=== PATIENT | female | born 1990 | race Hispanic/Latino ===

== ENCOUNTER 2020-07-24 03:45 | Emergency (ER) | payer SELFPAY ==
[~2020-07-24 03:45] MED LIST: ACETAMINOPHEN 325 MG TAB ONE
== END 2020-07-24 03:52 | disposition home or self-care (01) ==
LOC: EDH 03:45
DX: R20.8 Other disturbances of skin sensation (principal); Z59.0 Homelessness

== ENCOUNTER 2022-04-09 07:51 | Inpatient (IN) | payer OTHER ==
[~2022-04-09] VITALS: Ht 154.9 cm; Wt 111.7 kg
[2022-04-09] MEDS ORDERED: MORPHINE 4 MG SYG IVP ONE ×4 (08:00→11:30)
[2022-04-09] MEDS ORDERED: IOHEXOL 350 MG/ML 100ML INFUS..BTL IV ONE ×2 (08:15→08:34)
[2022-04-09] MEDS ORDERED: KETOROLAC 15MG/ML VIAL (15MG/ML) ONE (08:18)
[2022-04-09] MEDS ORDERED: DiphenhydrAMINE HCL 50 MG/ML VIAL ONE (08:18)
[2022-04-09] MEDS ORDERED: DiphenhydrAMINE HCL 50 MG/ML VIAL IV ONE (08:30)
[2022-04-09] MEDS ORDERED: KETOROLAC 15MG/ML VIAL (15MG/ML) IV ONE (08:30)
[2022-04-09 08:37] LABS: HEMATOCRIT 40.7 % (36-48); MEAN CORPUSCULAR HEMOGLOBIN 29.8 pg (27.0-33.0); MEAN CORPUSCULAR HGB CONC 33.4 g/dL (32.0-36.0); MEAN CORPUSCULAR VOLUME 89.1 fL (79-99); PLATELET COUNT (AUTO) 214 K/uL (130-400); RED BLOOD CELL COUNT(AUTO) 4.57 MIL/uL (4.00-5.50); RED CELL DISTRIBUTION WIDTH 13.7 % (11.0-15.5); WHITE BLOOD COUNT (AUTO) 10.7 K/uL (4.8-10.8)
[2022-04-09] MEDS: 0.9%NACL 1000ML 1,000 ML IV SCH ×2 (08:53→16:38)
[2022-04-09 08:58] LABS: ALANINE AMINOTRANSFERASE 28 U/L (12-78); ALBUMIN 3.8 g/dL (3.5-5.0); ASPARTATE AMINOTRANSFERASE 17 U/L (10-37); CARBON DIOXIDE 21 mmol/L (21-32); CHLORIDE 103 mmol/L (101-111); CREATININE 1.2 mg/dL (0.5-1.5); GLOMERULAR FILTR. RATE CALC 56 mL/min (>60); GLUCOSE,RANDOM 118 mg/dL (70-105); POTASSIUM 3.4 mmol/L (3.5-5.1); SODIUM SERUM 139 mmol/L (136-145); TOTAL PROTEIN, SERUM 8.3 g/dL (6.0-8.3); UREA NITROGEN, BLOOD 12 mg/dL (7-18)
[2022-04-09 09:09] LABS: INR 0.97 (0.85-1.15); PROTHROMBIN TIME 10.6 SEC (9.6-11.6)
[2022-04-09 09:11] LABS: PARTIAL THROMBOPLASTIN TIME 24.3 SEC (26.3-35.5)
[2022-04-09 09:28] LABS: BASOPHILS % (MANUAL) 1 % (0-2); EOSINOPHILS % (MANUAL) 1 % (1-6); LYMPHOCYTES % (MANUAL) 22 % (22-44); MAN.DIFF COMMENT-IMPRESSION MANUAL DIFFERENTIAL; MONOCYTES % (MANUAL) 3 % (2-9); PLATELET MORPHOLOGY COMMENT ADEQUATE; SEGMENTED NEUTROPHILS % 73 % (40-70)
[2022-04-09] MEDS ORDERED: HEPARIN 5,000 UNIT VIAL ONE (11:30)
[2022-04-09] MEDS ORDERED: HEPARIN 25,000 UNITS/250ML D5W 250 ML IV ONE (11:31)
[2022-04-09] MEDS: HEPARIN 25,000 UNITS/250ML D5W 250 ML IV SCH (11:47)
[2022-04-09] MEDS ORDERED: ONDANSETRON 4MG INJ IV PRN (12:30)
[2022-04-09] MEDS ORDERED: ACETAMINOPHEN 325 MG TAB PO PRN ×3 (12:30)
[2022-04-09 15:00] VITALS: BP 113/89
[2022-04-09 18:12] LABS: INR 1.02 (0.85-1.15); PROTHROMBIN TIME 11.1 SEC (9.6-11.6)
[2022-04-09 18:13] LABS: PARTIAL THROMBOPLASTIN TIME 81.4 SEC (26.3-35.5)
[2022-04-09 19:05] VITALS: BP 116/74
[2022-04-09] MEDS: FAMOTIDINE 20MG TAB PO SCH (22:56)
[2022-04-09 23:24] VITALS: BP 98/65
[2022-04-10] MEDS: HEPARIN 25,000 UNITS/250ML D5W 250 ML IV SCH (01:36)
[2022-04-10] MEDS: 0.9%NACL 1000ML 1,000 ML IV SCH ×4 (02:55→19:39)
[2022-04-10] MEDS: MORPHINE 4 MG SYG IVP PRN ×2 (03:04→20:09)
[2022-04-10 04:10] VITALS: BP 100/66
[2022-04-10 06:31] LABS: BASOPHILS % (AUTO) 0.3 % (0.0-5.0); EOSINOPHILS % (AUTO) 2.3 % (0.0-8.0); HEMATOCRIT 38.2 % (36-48); LYMPHOCYTES % (AUTO) 33.3 % (21.0-51.0); MEAN CORPUSCULAR HEMOGLOBIN 29.9 pg (27.0-33.0); MEAN CORPUSCULAR HGB CONC 33.2 g/dL (32.0-36.0); MEAN CORPUSCULAR VOLUME 89.9 fL (79-99); MONOCYTES % (AUTO) 4.9 % (3.0-13.0); NEUTROPHILS % (AUTO) 58.9 % (40.0-77.0); PLATELET COUNT (AUTO) 179 K/uL (130-400); RED BLOOD CELL COUNT(AUTO) 4.25 MIL/uL (4.00-5.50); RED CELL DISTRIBUTION WIDTH 14.2 % (11.0-15.5); WHITE BLOOD COUNT (AUTO) 8.6 K/uL (4.8-10.8)
[2022-04-10 06:45] LABS: CREATININE 0.7 mg/dL (0.5-1.5); POTASSIUM 3.2 mmol/L (3.5-5.1)
[2022-04-10 08:00] VITALS: BP 107/77
[2022-04-10] MEDS: FAMOTIDINE 20MG TAB PO SCH ×2 (10:54→20:09)
[2022-04-10 11:44] VITALS: BP 94/65
[2022-04-10 13:04] LABS: PROTHROMBIN TIME 10.9 SEC (9.6-11.6)
[2022-04-10 16:00] VITALS: BP 105/58
[2022-04-10 17:52] LABS: AMPHET/METH SCREEN,URINE NEGATIVE (NEGATIVE); BARBITURATE SCREEN, URINE NEGATIVE (NEGATIVE); BENZODIAZEPINES SCREEN,URINE NEGATIVE (NEGATIVE); CANNABINOID SCREEN,URINE NEGATIVE (NEGATIVE); COCAINE SCREEN,URINE POSITIVE (NEGATIVE); OPIATE SCREEN,URINE POSITIVE (NEGATIVE); PHENCYCLIDINE SCREEN,URINE NEGATIVE (NEGATIVE)
[2022-04-10 19:51] VITALS: BP 104/66
[2022-04-10 20:34] LABS: INR 0.98 (0.85-1.15); PROTHROMBIN TIME 10.7 SEC (9.6-11.6)
[2022-04-10 20:36] LABS: PARTIAL THROMBOPLASTIN TIME 49.3 SEC (26.3-35.5)
[2022-04-10 23:34] VITALS: BP 112/67
[2022-04-11 03:49] VITALS: BP 102/65
[2022-04-11 05:38] LABS: CREATININE 0.7 mg/dL (0.5-1.5); POTASSIUM 3.2 mmol/L (3.5-5.1)
[2022-04-11] MEDS: MORPHINE 4 MG SYG IVP PRN (06:19)
[2022-04-11 06:37] LABS: INR 0.97 (0.85-1.15); PROTHROMBIN TIME 10.6 SEC (9.6-11.6)
[2022-04-11 06:38] LABS: PARTIAL THROMBOPLASTIN TIME 51.3 SEC (26.3-35.5)
[2022-04-11 07:58] VITALS: BP 94/54
[2022-04-11] MEDS ORDERED: KCL 20 MEQ ERTAB PO PRN (09:30)
[2022-04-11] MEDS ORDERED: LIDOCAINE HCL-MPF 1% 2ML VIAL IV PRN (09:30)
[2022-04-11] MEDS ORDERED: POTASSIUM CHLORIDE 10% ELIXIR 20 MEQ/15 ML UDCUP PO PRN (09:30)
[2022-04-11] MEDS ORDERED: POTASSIUM CHLORIDE 20MEQ/100ML 100 ML IV PRN (09:30)
[2022-04-11] MEDS ORDERED: POTASSIUM CHLORIDE 10% ELIXIR 20 MEQ/15 ML UDCUP PO ONE (09:30)
[2022-04-11] MEDS: FAMOTIDINE 20MG TAB PO SCH ×2 (09:56→21:02)
[2022-04-11] MEDS: 0.9%NACL 1000ML 1,000 ML IV SCH ×4 (09:58→21:03)
[2022-04-11 12:00] VITALS: BP 80/42
[2022-04-11] MEDS ORDERED: APIXABAN 5 MG TABLET PO SCH (12:00)
[2022-04-11 12:04] LABS: MEAN CORPUSCULAR HEMOGLOBIN 30.1 pg (27.0-33.0); MEAN CORPUSCULAR HGB CONC 32.5 g/dL (32.0-36.0); MEAN CORPUSCULAR VOLUME 92.5 fL (79-99); RED BLOOD CELL COUNT(AUTO) 3.46 MIL/uL (4.00-5.50); RED CELL DISTRIBUTION WIDTH 14.3 % (11.0-15.5); WHITE BLOOD COUNT (AUTO) 5.8 K/uL (4.8-10.8)
[2022-04-11] MEDS ORDERED: APIX5TAB PO (12:06)
[2022-04-11] MEDS ORDERED: PANT40TA54 PO (12:06)
[2022-04-11 16:00] VITALS: BP 94/56
[2022-04-11 21:33] VITALS: BP 108/59
[2022-04-11 23:54] VITALS: BP 96/45
[2022-04-12] MEDS: 0.9%NACL 1000ML 1,000 ML IV SCH ×3 (03:08→17:15)
[2022-04-12 06:13] LABS: CREATININE 0.7 mg/dL (0.5-1.5); POTASSIUM 3.6 mmol/L (3.5-5.1)
[2022-04-12 06:15] LABS: INR 0.94 (0.85-1.15); PROTHROMBIN TIME 10.3 SEC (9.6-11.6)
[2022-04-12 06:16] LABS: PARTIAL THROMBOPLASTIN TIME 24.7 SEC (26.3-35.5)
[2022-04-12] MEDS: MORPHINE 4 MG SYG IVP PRN (06:57)
[2022-04-12 08:00] VITALS: BP 108/68
[2022-04-12] MEDS: FAMOTIDINE 20MG TAB PO SCH ×2 (09:57→20:32)
[2022-04-12] MEDS ORDERED: APIX5TAB PO (10:44)
[2022-04-12 12:00] VITALS: BP 108/60
[2022-04-12] MEDS: APIXABAN 5 MG TABLET PO SCH ×2 (15:29→20:33)
[2022-04-12 16:00] VITALS: BP 110/67
[2022-04-12] MEDS: HYDROCODONE/ACETAMINOPHEN 5/325 MG TAB PO PRN (17:12)
[2022-04-12] MEDS: DULOXETINE HCL 30 MG CAP PO SCH (20:32)
[2022-04-12 20:42] VITALS: BP 116/64
[2022-04-13] MEDS: 0.9%NACL 1000ML 1,000 ML IV SCH ×4 (00:03→23:09)
[2022-04-13 00:17] VITALS: BP 122/64
[2022-04-13] MEDS: MORPHINE 4 MG SYG IVP PRN (00:40)
[2022-04-13 04:29] VITALS: BP 119/70
[2022-04-13 05:08] LABS: BASOPHILS % (AUTO) 0.2 % (0.0-5.0); EOSINOPHILS % (AUTO) 4.7 % (0.0-8.0); HEMATOCRIT 31.5 % (36-48); LYMPHOCYTES % (AUTO) 34.1 % (21.0-51.0); MEAN CORPUSCULAR HEMOGLOBIN 29.8 pg (27.0-33.0); MEAN CORPUSCULAR HGB CONC 32.7 g/dL (32.0-36.0); MONOCYTES % (AUTO) 8.7 % (3.0-13.0); NEUTROPHILS % (AUTO) 51.5 % (40.0-77.0); PLATELET COUNT (AUTO) 188 K/uL (130-400); RED BLOOD CELL COUNT(AUTO) 3.46 MIL/uL (4.00-5.50); RED CELL DISTRIBUTION WIDTH 13.9 % (11.0-15.5); WHITE BLOOD COUNT (AUTO) 5.3 K/uL (4.8-10.8)
[2022-04-13 07:25] VITALS: BP 98/61
[2022-04-13] MEDS: FAMOTIDINE 20MG TAB PO SCH ×2 (08:28→20:38)
[2022-04-13] MEDS: APIXABAN 5 MG TABLET PO SCH ×2 (08:28→20:38)
[2022-04-13] MEDS: DULOXETINE HCL 30 MG CAP PO SCH ×2 (08:29→20:38)
[2022-04-13] MEDS: HYDROCODONE/ACETAMINOPHEN 5/325 MG TAB PO PRN (08:30)
[2022-04-13 11:25] VITALS: BP 101/61
[2022-04-13 15:25] VITALS: BP 117/70
[2022-04-13 21:23] VITALS: BP 120/75
[2022-04-14 00:09] VITALS: BP 113/70
[2022-04-14] MEDS: HYDROCODONE/ACETAMINOPHEN 5/325 MG TAB PO PRN (00:14)
[2022-04-14 04:11] VITALS: BP 97/60
[2022-04-14] MEDS: 0.9%NACL 1000ML 1,000 ML IV SCH (06:28)
[2022-04-14 08:00] VITALS: BP 107/61
[2022-04-14] MEDS: APIXABAN 5 MG TABLET PO SCH ×2 (08:43→21:37)
[2022-04-14] MEDS: FAMOTIDINE 20MG TAB PO SCH ×2 (08:43→21:37)
[2022-04-14] MEDS: DULOXETINE HCL 30 MG CAP PO SCH ×2 (08:43→21:37)
[2022-04-14 11:36] VITALS: BP 103/61
[2022-04-14 15:57] VITALS: BP 113/70
[2022-04-14 20:06] VITALS: BP 114/63
[2022-04-15 03:17] VITALS: BP 108/72
[2022-04-15 07:25] VITALS: BP 117/77
[2022-04-15] MEDS: FAMOTIDINE 20MG TAB PO SCH (10:08)
[2022-04-15] MEDS: DULOXETINE HCL 30 MG CAP PO SCH (10:08)
[2022-04-15] MEDS: APIXABAN 5 MG TABLET PO SCH (10:08)
[2022-04-15 11:15] VITALS: BP 111/66
== END 2022-04-15 14:20 | disposition home or self-care (01) | DRG 300 ==
LOC: EDH 07:51 → EDHIP 07:52 → 3AH 15:14
PROVIDERS: ADMIT Hospitalist; ATTEND Hospitalist
DX: I82.402 Acute embolism and thrombosis of unspecified deep veins of left lower extremity (principal); R45.851 Suicidal ideations; Z68.42 Body mass index [BMI] 45.0-49.9, adult; F20.9 Schizophrenia, unspecified; Z20.822 Contact with and (suspected) exposure to COVID-19; E66.01 Morbid (severe) obesity due to excess calories; F14.90 Cocaine use, unspecified, uncomplicated; E87.6 Hypokalemia
CPT/HCPCS: 36415; 73501; 73551; 73560; 73706; 80048; 80053; 80305; 83735; 85025; 85027; 85378; 85610; 85730; 87635; 93926; 93971; G0378; J1200; J1644; J1885; J2270; J7030; Q9967

== ENCOUNTER 2022-04-22 07:22 | Emergency (ER) | payer OTHER ==
[~2022-04-22] VITALS: Ht 154.9 cm; Wt 104.3 kg
[~2022-04-22 07:22] MED LIST changes: -ACETAMINOPHEN 325 MG TAB ONE; +APIX5TAB PO; +PANT40TA54 PO
[2022-04-22] MEDS ORDERED: KETOROLAC 30MG VIAL (30MG/ML) IM ONE (10:00)
[2022-04-22] MEDS ORDERED: KETOROLAC 30MG VIAL (30MG/ML) ONE (10:01)
[2022-04-22 10:53] VITALS: BP 117/45
== END 2022-04-22 10:55 | disposition home or self-care (01) ==
LOC: EDH 07:22
DX: I82.402 Acute embolism and thrombosis of unspecified deep veins of left lower extremity (principal); Z59.00 Homelessness unspecified; Z79.01 Long term (current) use of anticoagulants; Z86.718 Personal history of other venous thrombosis and embolism; Z90.49 Acquired absence of other specified parts of digestive tract
CPT/HCPCS: 99284; 93971; 96372; J1885